=== PATIENT | female | born 1985 | race Caucasian/White ===

== ENCOUNTER 2017-06-25 17:02 | Emergency (ER) | payer OTHER ==
[~2017-06-25] VITALS: Ht 167.6 cm; Wt 60.0 kg
[~2017-06-25 17:02] MED LIST: TRAM50TA PO; Z.0.NO CURRENT MEDS
[2017-06-25 17:05] VITALS: BP 129/72; PULSE 108; RESP 16; TEMP 98.5; O2SAT 99
[2017-06-25] MEDS ORDERED: ALPR.25 PO (17:12)
[2017-06-25] MEDS ORDERED: AMPH1TAB29 PO (17:12)
--- NOTE | 2017-06-25 17:58 | PD ---
HPI Chief Complaint: Skin Problem Time Seen by Provider: 17:34 Travel History International Travel<30 days: No Contact w/Intl Traveler<30days: No Traveled to known affect area: No History of Present Illness HPI 31-year-old female presents emergency department for evaluation of lesion to her right armpit that is been present for several days. Says that she had a pimple that she popped and has gotten larger and more painful over the last few days, after popping this pimple. She has no history of these lesions. She denies any fevers or chills. Says she has good hygiene. She has a history of anxiety but denies other chronic medical issues. PFSH Past Medical History ADD: Yes Anxiety: Yes Diminished Hearing: No Tetanus Vaccination: < 5 Years Influenza Vaccination: No ?: Not LMP: 06/10/17 : 1 Para: 1 : 1 Dilation and Curettage (D&C): Yes Past Surgical History Oral Surgery: Yes (WISDOM TEETH EXTRACTION) Social History Alcohol Use: Yes (RARE) Tobacco Use: Yes Substance Use: No Allergies-Medications (Allergen,Severity, Reaction): Coded Allergies: Sulfa (Sulfonamide Antibiotics) (Unverified Allergy, Severe, Hives, ) Reported Meds & Prescriptions Reported Meds & Active Scripts Active Clindamycin (Clindamycin HCl) 300 Mg Cap 300 Mg PO TID 7 Days Reported Adderall (Amphetamine-Dextroamphetamine) 5 Mg Tab Unknown Dose PO DIRECTED Avoid late evening doses. Space doses at least 4 to 6 hours if more than once/day dosing. Xanax (Alprazolam) 0.25 Mg Tab Unknown Dose PO DIRECTED PRN Review of Systems Except as stated in HPI: all other systems reviewed are Neg Physical Exam Narrative GENERAL: Well-nourished, well-developed patient. SKIN: Focused skin assessment warm/dry. Right axilla-large, 2 cm fluctuant mass with surrounding erythema. Tenderness palpation. No obvious puncta. No spontaneous drainage. HEAD: Normocephalic. EYES: No scleral icterus. No injection or drainage. NECK: Supple, trachea midline. No JVD or lymphadenopathy. CARDIOVASCULAR: Regular rate and rhythm without murmurs, gallops, or rubs. RESPIRATORY: Breath sounds equal bilaterally. No accessory muscle use. MUSCULOSKELETAL: No cyanosis, or edema. BACK: Nontender without obvious deformity. No CVA tenderness. Data Data Last Documented VS Vital Signs Date Time Temp Pulse Resp B/P (MAP) Pulse Ox O2 Delivery O2 Flow Rate FiO2 06/25/17 17:05 98.5 108 16 129/72 (91) 99 Orders Orders Wound Culture And Gram Stain (06/25/17 17:59) Ed Discharge Order (06/25/17 18:00) MDM Medical Decision Making Medical Screen Exam Complete: Yes Emergency Medical Condition: Yes Differential Diagnosis Abscess, hidradenitis suppurativa, cellulitis Narrative Course 31y female presents emergency department evaluation of an abscess to the right axilla there is been present for couple of days after popping a pimple. Vital signs are stable. I&D performed. Culture taken. Patient has an allergy to sulfa antibiotics. Patient will be prescribed clindamycin. Wound care instructions given. Patient should follow-up with emergency department or her primary care physician for wound care and evaluation. Advised take antibiotics as prescribed. Return for worsening or persistent symptoms. Procedures Procedure Narrative INCISION AND DRAINAGE OF ABSCESS: The area was prepped and was sterilely draped. A subcutaneous wheal of 2 % Xylocaine without epi with a total number 2 mL was used to anesthetize the area properly. A number 11 scalpel was used to make a 1-cm incision across the area of the abscess. The abscess was drained , complex loculations were broken down, and irrigated with normal saline. Cultures were obtained. Half inch iodoform packing was placed in the wound. Sterile dressing applied. Patient advised to have packing removed in two days. Diagnosis Primary Impression: Abscess Referrals: Primary Care Physician Additional Instructions: Follow-up with her primary care physician or to the emergency department for wound check in 1-2 days. Take all antibiotics as prescribed. If the gauze is removed from the wound, just apply antibiotic ointment and cover for protection. Keep area clean and dry for 24 hours. You may bathe as normal afterwards. You may use [id number] triple antibiotic ointments for your injury daily. Change dressings daily. If bleeding starts again, applied pressure. If he developed increased redness, swelling, or pain return to the emergency department. Scripts Clindamycin (Clindamycin) 300 Mg Cap 300 MG PO TID for Infection for 7 Days, CAP 0 Refills Prov: Ramirez,Kassandra L DO 06/25/17 Disposition: 01 DISCHARGE HOME Condition: Stable Sujey Dorantes Jun 25, 2017 17:58
[2017-06-25] MEDS ORDERED: CLIN300C5 PO (18:00)
== END 2017-06-25 18:14 | disposition home or self-care (01) ==
LOC: PHEFT 17:02
DX: L02.411 Cutaneous abscess of right axilla (principal); B95.62 Methicillin resistant Staphylococcus aureus infection as the cause of diseases classified elsewhere; F41.9 Anxiety disorder, unspecified; Z72.0 Tobacco use
CPT/HCPCS: 10060; 86403; 87070; 87186; 87205